=== PATIENT | female | born 1980 ===

== ENCOUNTER 2017-08-29 18:41 | Emergency (ER) | payer OTHER ==
[~2017-08-29] VITALS: Ht 167.6 cm; Wt 72.6 kg
[2017-08-29 19:04] LABS: Source, Urine Clean Catch
[2017-08-29 19:08] LABS: Bilirubin, Urine Neg (Neg); Blood, Urine 4+ (Neg); Glucose Qualitative, Urine Neg (Neg); Ketones, Urine Neg (Neg); Leukocyte Esterase, Urine 1+ (Neg); Nitrite, Urine Neg (Neg); Protein, Urine Neg (Neg); Urobilinogen, Urine NORM (Normal)
[2017-08-29 19:19] LABS: Appearance, Urine Hazy (Clear); Color, Urine Yellow (P-Yellow)
[2017-08-29 19:20] LABS: Bacteria Mod /hpf; Squamous Epithelial Cells Mod /hpf (Few)
[2017-08-29] MEDS ORDERED: Sudogest30 MG PO (19:46)
[2017-08-29] MEDS ORDERED: CEPH500 PO (19:46)
[2017-08-29] MEDS ORDERED: Nasonex17 GM (19:46)
[2017-08-29] MEDS ORDERED: Cheratussin AC118 ML PO (19:46)
[2017-08-29] MEDS ORDERED: Pyridium200 MG PO (19:46)
== END 2017-08-29 19:53 | disposition home or self-care (01) ==
LOC: ER 18:41
PROVIDERS: Physician Assistant
DX: J01.90 Acute sinusitis, unspecified (principal); N39.0 Urinary tract infection, site not specified; G43.909 Migraine, unspecified, not intractable, without status migrainosus
CPT/HCPCS: 81001; 87086; 87106; 99284

== ENCOUNTER 2017-10-29 17:53 | Emergency (ER) | payer OTHER ==
[~2017-10-29] VITALS: Ht 167.6 cm; Wt 72.6 kg
[~2017-10-29 17:53] MED LIST: CEPH500 PO; Cheratussin AC118 ML PO; Nasonex17 GM; Pyridium200 MG PO; Sudogest30 MG PO
[2017-10-29] MEDS ORDERED: METPHE10 PO (18:09)
[2017-10-29] MEDS ORDERED: GABA300 PO (18:09)
[2017-10-29] MEDS ORDERED: Esgic Tablet1 EACH PO (18:09)
[2017-10-29] MEDS ORDERED: BUTONI (18:10)
== END 2017-10-29 19:22 | disposition home or self-care (01) ==
LOC: ER 17:53
DX: G43.909 Migraine, unspecified, not intractable, without status migrainosus (principal); Z79.899 Other long term (current) drug therapy
CPT/HCPCS: 96372; 99283; J1885

== ENCOUNTER → 2020-08-03 | Outpatient (CLI) | payer OTHER ==
[~2020-08-03] MED LIST changes: +BUTONI; +Esgic Tablet1 EACH PO; +GABA300 PO; +METPHE10 PO
== END | disposition home or self-care (01) ==
LOC: LAB SHORT 16:07 → LAB EV 16:07
DX: N39.0 Urinary tract infection, site not specified (principal)
CPT/HCPCS: 87077; 87086; 87186

== ENCOUNTER → 2020-10-08 | Outpatient (CLI) | payer SELFPAY | END | disposition home or self-care (01) | LOC: LAB SHORT 15:44 → LAB EV 15:44 | DX: N39.0 Urinary tract infection, site not specified (principal) | CPT/HCPCS: 87086 ==

== ENCOUNTER → 2022-08-02 | Outpatient (CLI) | payer OTHER ==
[2022-08-03 16:11] LABS: HPV 16 Negative (Negative); HPV 18 Negative (Negative); HPV OTHER HR TYPES Negative (Negative)
== END | disposition home or self-care (01) ==
LOC: RAD SHORT 10:40
PROVIDERS: Obstetrics & Gynecology
DX: Z01.419 Encounter for gynecological examination (general) (routine) without abnormal findings (principal)
CPT/HCPCS: 87624; G0145

== ENCOUNTER → 2022-11-14 | Outpatient (CLI) | payer OTHER ==
[~2022-11-14] MED LIST changes: +ONDA4 PO; +OXYC5 PO
[2022-11-15 11:50] LABS: Candida species (DNA Probe) Negative (NEGATIVE); G. vaginalis (DNA Probe) Positive (NEGATIVE); T. vaginalis (DNA Probe) Negative (NEGATIVE)
== END | disposition home or self-care (01) ==
LOC: LAB 10:12 → LAB SHORT 10:12
PROVIDERS: Obstetrics & Gynecology
DX: N89.8 Other specified noninflammatory disorders of vagina (principal)
CPT/HCPCS: 87480; 87510; 87660